=== PATIENT | female | born 1975 | race Caucasian/White ===

== ENCOUNTER → 2017-11-21 | Outpatient (CLI) | payer OTHER ==
[~2017-11-21] MED LIST: SYMBICORT INH; TYLENOL WITH C1 EACH PO
--- NOTE | 2017-11-21 13:55 | Diagnostic Imaging Report ---
PROCEDURE: Frontal and lateral views of the chest. COMPARISON: None. INDICATIONS: ASTHMA FINDINGS: Lines/tubes: None. Lungs: The lungs are well inflated and clear. There is no evidence of pneumonia or pulmonary edema. Pleura: There is no pleural effusion or pneumothorax. Heart and mediastinum: The heart and the mediastinum are normal. Bones: No acute bony abnormality. IMPRESSION: 1. No acute cardiopulmonary abnormalities. Rigo Mitchell M.D. Dictated by: Rigo Mitchell M.D. on 11/21/2017 at 14:00 Electronically approved by: Rigo Mitchell M.D. on 11/21/2017 at 14:00
== END ==
LOC: RAD 12:47
PROVIDERS: ATTEND Internal Medicine
DX: Z00.00 Encounter for general adult medical examination without abnormal findings (principal); Z12.31 Encounter for screening mammogram for malignant neoplasm of breast; L40.0 Psoriasis vulgaris
CPT/HCPCS: 71046; 77067

== ENCOUNTER → 2017-11-29 | Outpatient (CLI) | payer OTHER ==
--- NOTE | 2017-11-29 16:43 | Diagnostic Imaging Report ---
EXAM: Thyroid Ultrasound INDICATION: \[id number] \[id number] \S\FAMILY HX OF HUY THYROIDITIS COMPARISON: None TECHNIQUE: Transverse and sagittal images were obtained of the thyroid gland. FINDINGS: Thyroid gland: Size: Right lobe: 5.6 x 2.6 x 2.1 cm, Normal in size Left lobe: 4.8 x 2 x 1.9 cm, Normal in size Isthmus: 0.4 cm, Normal in size Appearance: Homogeneous echotexture without increased vascularity Masses/Nodules: Right lobe: 0.3 x 0.3 x 0.4 cm cm almost completely solid (2 pts) nodule in the mid/inferior pole with smooth margin (0 pts), [id number]-pfix-wrwk (0 pts), isoechoic (1 pt), TR3a (<1.5 cm): No follow-up. 0.3 x 0.3 x 0.3 cm solid (2 pts) nodule in the mid/inferior pole with smooth margin (0 pts), dzurt-hres-koou (0 pts), hypoechoic (2 pts), no calcifications TR4a (<1.0 cm): No follow-up. Left lobe: 0.7 x 0.6 x 0.7 cm mixed solid and cystic (1 pt) nodule in the interpolar region with smooth margin (0 pts), [id number]-jdzn-sysv (0 pts), isoechoic (1 pt), and no calcifications (0 pts). TR2, Not Suspicious: No FNA. 0.8 x 0.4 x 0.8 cm almost completely solid (2 pts) nodule in the inferior pole with smooth margin (0 pts), iehgw-wcvd-abdm (0 pts), hypoechoic (2 pts), and punctate echogenic foci (3 pts). TR5b (0.5-1.0 cm), Highly Suspicious: Follow at 1, 2, 3, 4, 5 years. Parathyroid: No focal parathyroid masses. IMPRESSION: Bilateral subcentimeter thyroid nodules, none meet the criteria for fine-needle aspiration. Recommend follow-up in one year. TI-RADS Lexicon: TR1, Benign: No FNA TR2, Not Suspicious: No FNA. TR3a (<1.5 cm): No follow-up. TR3b (1.5-2.5 cm), Mildly Suspicious: Follow at 1, 3, 5 years. TR3c (>2.5 cm), Mildly Suspicious: FNA. TR4a (<1.0 cm): No follow-up. TR4b (1.0-1.5 cm), Moderately Suspicious: Follow at 1, 2, 3, 5 years. TR4c (>1.5 cm), Moderately Suspicious: FNA. TR5a (<0.5 cm): No follow-up. TR5b (0.5-1.0 cm), Highly Suspicious: Follow at 1, 2, 3, 4, 5 years. TR5c (>1.0 cm), Highly Suspicious: FNA. *Rebiopsy if new suspicious features *No recommendation at this time for significant interval growth. Nodule Characteristics: * Benign features: cystic, hyperechoic, comet-tail artifact, complete halo * Minor suspicious features: solid, hypoechoic, other calcifications * Major suspicious features: microcalcifications, marked hypoechoic (less than strap muscle), suspicious lymph nodes, taller than wide, lobulated or ill-defined margins. Literature: ACR Thyroid Imaging, Reporting and Data System (TI-RADS): White Paper of the ACR TI-RADS Committee. J Am Brisa Radiol 2017. Signed by: Dr. Buster Narayanan MD on 11/29/2017 4:40 PM
== END ==
LOC: US 15:24
PROVIDERS: ATTEND Internal Medicine
DX: Z83.49 Family history of other endocrine, nutritional and metabolic diseases (principal)
CPT/HCPCS: 76536

== ENCOUNTER → 2018-10-30 | Outpatient (CLI) | payer OTHER ==
--- NOTE | 2018-10-30 16:45 | Diagnostic Imaging Report ---
Exam: Left foot series, 3 views. Clinical History: Foot pain Comparison: None Findings: 3 views of the left foot demonstrate no acute fracture or dislocation. The soft tissues appear unremarkable. Small plantar calcaneal spur. Impression: No acute osseous injury. Signed by: Berta Ferrer MD on 10/30/2018 4:42 PM
--- NOTE | 2018-11-02 08:00 | Diagnostic Imaging Report ---
EXAM: Bone mineral density study 10/30/2018 1:13 PM INDICATION: ^PLAQUE PSORIASIS COMPARISON: Previous DEXA none. Baseline DEXA none FINDINGS: Evaluation of the left hip and lumbar spine was performed. The study is technically adequate. The patient's fracture risk is compared to an age-matched control. The patient denies prior surgery/fracture of the spine, hips or forearm. LEFT HIP * Femoral neck bone mineral density: 0.741 gm/cm2, T-score is -1.0, Z-score is -0.6. * Total bone mineral density: 0.860 gm/cm2, T-score is -0.7, Z-score is -0.4. LUMBAR SPINE * Total bone mineral density: 0.922 gm/cm2, T-score is -1.1, Z-score is -0.8. IMPRESSION: 1. LEFT HIP: Bone mineralization by WHO Classification is normal, the fracture risk is not increased. 2. LUMBAR SPINE: Bone mineralization by WHO Classification is osteopenia, the fracture risk is moderate. 3. With a Z score of -0.8, bone mineral density is considered within normal range for a patient of this age. Bone mineral density in the lumbar spine is osteopenic compared to young adult normals. 4. Calculated 10 year risk for major osteoporotic fracture 4.6%, for hip fracture 0.5%. Signed by: Dr. Govind Obregon M.D. on 11/02/2018 7:57 AM
== END ==
LOC: DX 13:07
PROVIDERS: ATTEND Internal Medicine
DX: L40.0 Psoriasis vulgaris (principal); M79.672 Pain in left foot
CPT/HCPCS: 77080

== ENCOUNTER → 2019-03-12 | Outpatient (CLI) | payer OTHER ==
--- NOTE | 2019-03-12 08:39 | Diagnostic Imaging Report ---
EXAM: US ABDOMEN COMPLETE DATE: 03/12/2019 7:49 AM INDICATION: Thrombocytopenia COMPARISON: None TECHNIQUE: Transverse and longitudinal baltazar scale and color doppler sonographic images of the upper abdomen were obtained. FINDINGS: There is no evidence of fluid or masses seen in the area of clinical concern in the right lower quadrant. LIVER 14.2 cm in the right midclavicular line. Normal echogenicity of the liver with normal contour, no masses. SPLEEN 8.8 cm in maximum diameter. Normal echogenicity, no masses. GALLBLADDER No gallbladder wall thickening, distension, stone, or pericholecystic fluid. NEgative reported sonographic Roberts's sign. Gallbladder wall measures 1 mm. BILE DUCTS No intra nor extra-hepatic biliary dilation. Common bile duct measures 2 mm. PANCREAS: Visualized portions are normal. RIGHT KIDNEY: 11.5 cm Echogenicity: Normal Collecting System: No hydronephrosis Stones: None Cyst/Mass: None LEFT KIDNEY: 10.8 cm Echogenicity: Normal Collecting System: No hydronephrosis Stones: None Cyst/Mass: None VESSELS: Aorta: Visualized portions are within normal size limits Inferior Vena Cava: Visualized portions are normal Main Portal Vein: 1.3 cm, normal size with hepatopetal flow. FREE FLUID: None IMPRESSION: Unremarkable abdominal ultrasound. Signed by: Berta Ferrer MD on 03/12/2019 8:36 AM
== END ==
LOC: US 07:44
PROVIDERS: ATTEND Internal Medicine
DX: D69.6 Thrombocytopenia, unspecified (principal)
CPT/HCPCS: 76700